=== PATIENT | male | born 1995 | race Hispanic/Latino ===

== ENCOUNTER 2024-04-15 14:34 | Inpatient (IN) | payer SELFPAY ==
[~2024-04-15] VITALS: Ht 182.9 cm; Wt 123.6 kg
[2024-04-15 15:32] LABS: BASOPHILS # (AUTO) 0.01 K/uL (0.00-0.20); BASOPHILS % (AUTO) 0.1 % (0.0-5.0); EOSINOPHILS # (AUTO) 0.05 K/uL (0.00-0.70); EOSINOPHILS % (AUTO) 0.5 % (0.0-8.0); HEMATOCRIT 40.6 % (42-54); IMMATURE GRANULOCYTE ABSOLUTE 0.02 K/uL (0-1); LYMPHOCYTES # (AUTO) 2.2 K/uL (1.0-4.8); LYMPHOCYTES % (AUTO) 23.5 % (21.0-51.0); MEAN CORPUSCULAR HEMOGLOBIN 30.1 pg (27.0-33.0); MEAN CORPUSCULAR HGB CONC 34.2 g/dL (32.0-36.0); MEAN CORPUSCULAR VOLUME 87.9 fL (79-99); MONOCYTES # (AUTO) 0.8 K/uL (0.1-1.0); MONOCYTES % (AUTO) 8.7 % (3.0-13.0); NEUTROPHILS # (AUTO) 6.1 K/uL (1.8-7.7); PLATELET COUNT (AUTO) 225 K/uL (130-400); RED BLOOD CELL COUNT(AUTO) 4.62 MIL/uL (4.50-6.20); RED CELL DISTRIBUTION WIDTH 12.9 % (11.0-15.5); WHITE BLOOD COUNT (AUTO) 9.2 K/uL (4.8-10.8)
[2024-04-15] MEDS: 0.9%NACL 1000ML 1,000 ML IV ONE (15:42)
[2024-04-15] MEDS: ZOSYN 3.375GM +NS 50ML IVPB ONE (15:42)
[2024-04-15] MEDS: ondanSETRON 4MG INJ IVP ONE (15:42)
[2024-04-15 15:43] LABS: CREATININE 0.9 mg/dL (0.5-1.3); POTASSIUM 3.3 mmol/L (3.5-5.1)
[2024-04-15] MEDS: morPHINE 2 MG SYG IVP ONE ×2 (15:43→17:43)
[2024-04-15] MEDS ORDERED: morPHINE 2 MG SYG IV PRN (17:00)
[2024-04-15] MEDS ORDERED: LACTULOSE 20 GM/30 ML UDCUP PO PRN (17:00)
[2024-04-15] MEDS ORDERED: DiphenhydrAMINE HCL 25 MG CAPSULE PO PRN (17:00)
[2024-04-15] MEDS ORDERED: acetaMINOPHEN 325 MG TAB PO PRN (17:00)
[2024-04-15] MEDS ORDERED: guaiFENesin-DM 200/20MG 10ML PO PRN (17:00)
[2024-04-15] MEDS ORDERED: NITROGLYCERIN 0.4 MG SL TAB SL PRN (17:00)
[2024-04-15] MEDS ORDERED: MAG/ALUM/SIMETH 30 ML UDCUP PO PRN (17:00)
[2024-04-15] MEDS: LACTATED RINGERS 1000ML 1,000 ML IV SCH (17:43)
[2024-04-15 18:24] LABS: ADD UA MICROSCOPIC YES; APPEARANCE,URINE CLEAR (CLEAR); BILIRUBIN,URINE NEGATIVE (NEGATIVE); COLOR,URINE COLORLESS (YELLOW); GLUCOSE, URINE (UA) NEGATIVE (NEGATIVE); KETONES,URINE NEGATIVE (NEGATIVE); LEUKOCYTE ESTERASE ,URINE NEGATIVE Leu/uL (NEGATIVE); NITRATE,URINE NEGATIVE (NEGATIVE); OCCULT BLOOD,URINE NEGATIVE (NEGATIVE); PROTEIN,URINE NEGATIVE (NEGATIVE); UROBILINOGEN,URINE 0.2 mg/dL (0.2-1.0)
[2024-04-15 18:25] LABS: RBC,URINE 0-1 /HPF (0-1); SQUAMOUS EPITHELIAL CELL,UR RARE /HPF (0-2); WBC,URINE 0-1 /HPF (0-1)
[2024-04-15 19:30] VITALS: O2SAT 100
[2024-04-15] MEDS: FAMOTIDINE 20MG VIAL IV SCH (20:35)
[2024-04-15 21:55] VITALS: BP 131/70; PULSE 73; RESP 18; TEMP 98.9
[2024-04-15] MEDS: ZOSYN 3.375GM+NS 50ML 50 ML IV SCH (22:57)
[2024-04-15] MEDS: morPHINE 4 MG SYG IV PRN (23:09)
[2024-04-16] VITALS (28 sets, daily range): BP systolic 101–139; BP diastolic 54–94; PULSE 62–107; RESP 15–18; TEMP 97.3–98.8; O2SAT 96–99
[2024-04-16] MEDS: PoTASSium chloRIDE 20MEQ/100ML 100 ML IV PRN (02:50)
[2024-04-16 06:25] LABS: POTASSIUM 3.4 mmol/L (3.5-5.1)
[2024-04-16] MEDS ORDERED: dexaMETHasone SOD PHOSPHATE 10MG/ML 1ML VIAL ONE (12:15)
[2024-04-16] MEDS ORDERED: LIDOCAINE PF 100MG/5ML (2%) SYRINGE 5ML ONE (12:15)
[2024-04-16] MEDS ORDERED: SUCCINYLCHOLINE CHLORIDE 20 MG/ML 10 ML VIAL ONE (12:15)
[2024-04-16] MEDS ORDERED: ondanSETRON 4MG INJ ONE (12:16)
[2024-04-16] MEDS ORDERED: FENTanyl CITRate PF 50 MCG/1 ML 2ML VIAL ONE ×2 (12:16→13:32)
[2024-04-16] MEDS ORDERED: proPOFol 10 MG/ML 20ML VIAL IV ONE (12:16)
[2024-04-16] MEDS ORDERED: NEOSTIGMINE METHYLSULFATE 1MG/ML IV ONE (12:16)
[2024-04-16] MEDS ORDERED: GLYCOPYRROLATE 0.2 MG/ML 5 ML VIAL ONE (12:16)
[2024-04-16] MEDS ORDERED: MIDAZOLAM HCL 1 MG/ML 2ML VIAL ONE (12:16)
[2024-04-16] MEDS ORDERED: rocuRONium bROMide 10MG/1ML 5ML VL ONE ×2 (12:17→13:33)
[2024-04-16] MEDS: LACTATED RINGERS 1000ML 1,000 ML IV ONE (12:26)
[2024-04-16] MEDS: ceFAZolin SODIUM 1 GM VIAL ONE (13:25)
[2024-04-16] MEDS: BUPIvacaine HCL/EPINEPHrine/PF 0.25% 10ML VIAL IJ ONE (13:31)
[2024-04-16] MEDS ORDERED: ketOROlac 30MG VIAL (30MG/ML) ONE (13:46)
[2024-04-16] MEDS: acetaMINOPHEN 100 ML ONE (14:30)
[2024-04-16] MEDS: MEPERIDINE-PF 25 MG/ML SYG ONE ×2 (14:31→14:42)
[2024-04-16] MEDS: SIMETHICONE 80 MG TAB.CHEW PO SCH (16:58)
[2024-04-17 02:20] VITALS: BP 118/62; PULSE 81; RESP 19; TEMP 98.6
[2024-04-17 04:04] VITALS: BP 112/55; PULSE 88; RESP 18; TEMP 98.2
[2024-04-17 05:13] LABS: BASOPHILS # (AUTO) 0.01 K/uL (0.00-0.20); BASOPHILS % (AUTO) 0.1 % (0.0-5.0); HEMATOCRIT 36.4 % (42-54); IMMATURE GRANULOCYTE ABSOLUTE 0.06 K/uL (0-1); LYMPHOCYTES # (AUTO) 1.3 K/uL (1.0-4.8); LYMPHOCYTES % (AUTO) 12.3 % (21.0-51.0); MEAN CORPUSCULAR HEMOGLOBIN 30.2 pg (27.0-33.0); MEAN CORPUSCULAR HGB CONC 33.8 g/dL (32.0-36.0); MEAN CORPUSCULAR VOLUME 89.4 fL (79-99); MONOCYTES # (AUTO) 0.7 K/uL (0.1-1.0); MONOCYTES % (AUTO) 6.9 % (3.0-13.0); NEUTROPHILS # (AUTO) 8.4 K/uL (1.8-7.7); NEUTROPHILS % (AUTO) 80.1 % (40.0-77.0); PLATELET COUNT (AUTO) 224 K/uL (130-400); RED BLOOD CELL COUNT(AUTO) 4.07 MIL/uL (4.50-6.20); RED CELL DISTRIBUTION WIDTH 12.6 % (11.0-15.5); WHITE BLOOD COUNT (AUTO) 10.4 K/uL (4.8-10.8)
[2024-04-17 05:40] LABS: ALBUMIN 3.1 g/dL (3.5-5.0); BILIRUBIN,TOTAL 0.4 mg/dL (0.2-1.0); CREATININE 0.8 mg/dL (0.5-1.3); POTASSIUM 3.6 mmol/L (3.5-5.1); TOTAL PROTEIN, SERUM 6.8 g/dL (6.0-8.3)
[2024-04-17 07:24] VITALS: BP 127/78; PULSE 72; RESP 18; TEMP 97.7
[2024-04-17 09:00] VITALS: O2SAT 97
[2024-04-17 11:19] VITALS: BP 127/69; PULSE 70; RESP 16; TEMP 97.6
[2024-04-17] MEDS: traMADol HCL 50 MG TABLET PO PRN (13:00)
[2024-04-17 16:00] VITALS: BP 121/62; PULSE 66; RESP 16; TEMP 97.7
== END 2024-04-17 18:00 | disposition home or self-care (01) | DRG 399 ==
LOC: EDH 14:34 → EDHIP 14:35 → UNDOADMIN 16:52 → 3DH 19:05
PROVIDERS: ADMIT Hospitalist; ATTEND Hospitalist
PROC: 0DTJ4ZZ Resection of Appendix, Percutaneous Endoscopic Approach (ICD-10-PCS; principal; 2024-04-16 13:15)
DX: K35.80 Unspecified acute appendicitis (principal); E87.6 Hypokalemia; Z79.899 Other long term (current) drug therapy
CPT/HCPCS: 36415; 74177; 80048; 80053; 81001; 85025; 87040; 88304; 96375; 96376; A4344; G0378; J0330; J0690; J1100; J1885; J2003; J2175; J2250; J2270; J2405; J2543; J2704; J2710; J3010; J3480; J3490; J7030; J7120; A4215; A4216; A4222; A4223; A4600; A4649; A4930; C1713